=== PATIENT | female | born 1930 | race Caucasian/White ===

== ENCOUNTER 2018-04-17 16:23 | Emergency (ER) | payer MEDICARE ==
[2018-04-17 17:06] VITALS: RESP 18
[2018-04-17] MEDS ORDERED: SODIUM CHLORIDE 0.9% 1,000 ML IV STA (17:46)
[2018-04-17 18:13] LABS: Basophils % (A) 0 %; Eosinophils # (A) 0.1 k/uL (0-0.7); Eosinophils % (A) 2 %; HGB 10.8 gm/dL (11.4-16.0); Lymphocytes # (A) 1.1 k/uL (1.0-4.8); Lymphocytes % (A) 16 %; MCH 32.4 pg (25.0-35.0); MCHC 31.7 g/dL (31.0-37.0); Macrocytosis Slight; Mean Platelet Volume 7.8; Monocytes # (A) 0.4 k/uL (0-1.0); Monocytes % (A) 5 %; Neutrophils # (A) 5.2 k/uL (1.3-7.7); Neutrophils % (A) 75 %; Platelet Count 145 k/uL (150-450); RBC 3.33 m/uL (3.80-5.40)
[2018-04-17 18:22] LABS: Partial Thromboplastin Time 24.1 sec (22.0-30.0); Prothrombin Time 19.9 sec (9.0-12.0)
[2018-04-17 18:27] LABS: Albumin 3.7 g/dL (3.5-5.0); Calcium 9.7 mg/dL (8.4-10.2); Magnesium 1.6 mg/dL (1.6-2.3); Phosphorus 3.8 mg/dL (2.5-4.5); Potassium 4.1 mmol/L (3.5-5.1); Total Bilirubin 0.8 mg/dL (0.2-1.3); Total Protein 6.5 g/dL (6.3-8.2)
[2018-04-17 18:31] LABS: Creatine Kinase 51 U/L (30-135)
[2018-04-17 18:42] LABS: Creatine Kinase MB 0.7 ng/mL (0.0-2.4); Troponin I <0.012 ng/mL (0.000-0.034)
--- NOTE | 2018-04-17 18:45 | CT ---
EXAMINATION TYPE: CT brain suraj devries DATE OF EXAM: 04/17/2018 COMPARISON: None HISTORY: Fall. CT DLP: 1228.[address] of the brain was performed. The ventricles, basal cisterns and sulci overlying the cerebral convexities demonstrate mild enlargem ent. There is no evidence for intracranial hemorrhage or sulcal effacement. There is decreased attenuatio n about the periventricular white matter and deep white matter of both cerebral hemispheres, compatib le with chronic small vessel ischemia. No mass effects are seen. If symptoms persist consider MRI. Osseous calvarium is intact. IMPRESSION: 1. Age related atrophic and chronic small vessel ischemic change without acute intracranial process seen at this time. CT Cervical Spine: Unenhanced CT of the cervical spine was performed with bone and soft tissue window settings submitted . Coronal and sagittal reconstruction is obtained. There is normal alignment and prevertebral soft tissues. No evidence for acute cervical fracture . Scattered degenerative disc disease and spondylosis. Biapical scarring. IMPRESSION: 1. No evidence for acute fracture or subluxation of the cervical spine.
--- NOTE | 2018-04-17 18:46 | XR ---
EXAMINATION TYPE: XR pelvis AP view DATE OF EXAM: 04/17/2018 CLINICAL HISTORY: pain TECHNIQUE: Single view the pelvis is submitted. FINDINGS: No evidence for fracture, dislocation or bony lesion. Joint spaces are well-preserved. S I joints appear symmetric. IMPRESSION: 1. No acute fracture or dislocation seen. ICD 10 NO FRACTURE, INITIAL EVALUATION
--- NOTE | 2018-04-17 18:47 | XR ---
EXAMINATION TYPE: XR chest 2V DATE OF EXAM: 04/17/2018 COMPARISON: NONE HISTORY: Shortness of breath TECHNIQUE: Frontal and lateral views of the chest are obtained. FINDINGS: Scattered senescent parenchymal changes noted. Hyperinflation compatible with COPD. Patchy density left lower lobe may reflect developing infiltrate. Correlate clinically and progress s tudies are recommended. Heart size is stable. Mediastinal structures are stable and grossly unremarkable. No evidence for hilar prominence. Degenerative changes dorsal spine. IMPRESSION: 1. Patchy density left lower lobe may reflect developing infiltrate. Correlate clinically and progres s studies are recommended.
[2018-04-17] MEDS ORDERED: LEVOFLOXACIN 750 MG TAB PO STA (19:01)
--- NOTE | 2018-04-17 19:01 | ED ---
Fall HPI - General Chief Complaint: Fall Stated Complaint: Fall Time Seen by Provider: 04/17/18 16:29 Source: patient Mode of arrival: EMS - History of Present Illness Initial Comments: This is an 87-year-old female the ER for evaluation. Patient resents today for evaluation of fall. Patient has developed fluid and her house earlier today. She hasn't difficulty getting up blood sugar was able to get up and was ambulatory. Patient did hit her head she is on Coumadin, she does have mild hematoma to her posterior scalp, no loss of consciousness. Patient also complaining of mild chest pain currently. No shortness of breath no recent fever cough or congestion. No other recent illness MD Complaint: fall (Chemical) -: hour(s) Fall From: standing When Fall Occurred: 1-3 hours [employer] Fall Witnessed: no Place Fall Occurred: home Loss of Consciousness: none Prolonged Down Time?: no Symptoms Prior to Fall: none Location: head, chest Severity: mild Severity scale (1-10): 2 Quality: burning Context: tripped/slipped Associated Symptoms: denies - Related Data Home Medications Medication Instructions Recorded Confirmed Allopurinol [Zyloprim] 150 mg PO DAILY 04/17/18 04/17/18 Cranberry Fruit Extract [Cranberry] 200 mg PO DAILY 04/17/18 04/17/18 Furosemide [Lasix] 80 mg PO BID 04/17/18 04/17/18 Iron 18 mg PO DAILY 04/17/18 04/17/18 Metoprolol Tartrate [Lopressor] 12.5 mg PO DAILY 04/17/18 04/17/18 Oxybutynin Chloride 5 mg PO DAILY 04/17/18 04/17/18 Potassium Chloride [K-Tab ER] 10 meq PO BID 04/17/18 04/17/18 Simvastatin [Zocor] 20 mg PO DAILY 04/17/18 04/17/18 Warfarin [Coumadin] 1 mg PO [id number] 04/17/18 04/17/18 Warfarin [Coumadin] 2 mg PO LOPEZ 04/17/18 04/17/18 Previous Rx's Medication Instructions Recorded Levofloxacin [Levaquin] 750 mg PO DAILY #7 tab 04/17/18 Allergies Allergy/AdvReac Type Severity Reaction Status Date / Time cephalexin [From Keflex] Allergy Swelling Verified 04/17/18 16:50 sulfamethoxazole Allergy Swelling Verified 04/17/18 16:50 [From ] trimethoprim [From ] Allergy Swelling Verified 04/17/18 16:50 Review of Systems ROS Statement: Those systems with pertinent positive or pertinent negative responses have been documented in the HPI. ROS Other: All systems not noted in ROS Statement are negative. Past Medical History Past Medical History: Cancer, Hyperlipidemia History of Any Multi-Drug Resistant Organisms: None Reported Past Surgical History: Adenoidectomy, Section Past Psychological History: No Psychological Hx Reported Smoking Status: Never smoker Past Alcohol Use History: None Reported Past Drug Use History: None Reported General Exam Limitations: no limitations General appearance: alert, in no apparent distress Head exam: Present: atraumatic, normocephalic, normal inspection Eye exam: Present: normal appearance, PERRL, EOMI. Absent: scleral icterus, conjunctival injection, periorbital swelling ENT exam: Present: normal exam, mucous membranes moist Neck exam: Present: normal inspection. Absent: tenderness, meningismus, lymphadenopathy Respiratory exam: Present: normal lung sounds bilaterally. Absent: respiratory distress, wheezes, rales, rhonchi, stridor Cardiovascular Exam: Present: regular rate, normal rhythm, normal heart sounds. Absent: systolic murmur, diastolic murmur, rubs, gallop, clicks GI/Abdominal exam: Present: soft, normal bowel sounds. Absent: distended, tenderness, guarding, rebound, rigid Extremities exam: Present: normal inspection, full ROM, normal capillary refill. Absent: tenderness, pedal edema, joint swelling, calf tenderness Back exam: Present: normal inspection Neurological exam: Present: alert, oriented X3, CN II-XII intact Psychiatric exam: Present: normal affect, normal mood Skin exam: Present: warm, dry, intact, normal color. Absent: rash Course Vital Signs 04/17/18 04/17/18 04/17/18 16:26 17:00 17:30 Temperature 97.8 F Pulse Rate 69 55 L Respiratory 18 18 Rate Blood Pressure 126/65 126/65 138/70 O2 Sat by Pulse 94 L 96 95 Oximetry - Reevaluation(s) Reevaluation #1: 04/17/18 19:19 Medical record is reviewed and I continue to Reevaluation #2: 04/17/18 19:19 Patient has no complaints of chest pain currently Reevaluation #3: 04/17/18 19:19 Patient informed of positive chest x-ray, questions are answered Reevaluation #4: 04/17/18 19:19 Patient states she has to go [place] night at 7:30, states she would like to be discharged home Medical Decision Making - Medical Decision Making 87 female the ER status post mechanical trip and fall, patient is in the finding of pneumonia, chest pain. EKG troponin negative labwork normal. Patient can be discharged home on antibiotics - Lab Data Result diagrams: 04/17/18 16:52 04/17/18 16:52 Lab Results 04/17/18 04/17/18 04/17/18 Range/Units 16:52 16:52 16:52 WBC 7.0 (3.8-10.6) k/uL RBC 3.33 L (3.80-5.40) m/uL Hgb 10.8 L (11.4-16.0) gm/dL Hct 34.0 (34.0-46.0) % MCV 102.0 H (80.0-100.0) fL MCH 32.4 (25.0-35.0) pg MCHC 31.7 (31.0-37.0) g/dL RDW 15.0 (11.5-15.5) % Plt Count 145 L (150-450) k/uL Neutrophils % 75 % Lymphocytes % 16 % Monocytes % 5 % Eosinophils % 2 % Basophils % 0 % Neutrophils # 5.2 (1.3-7.7) k/uL Lymphocytes # 1.1 (1.0-4.8) k/uL Monocytes # 0.4 (0-1.0) k/uL Eosinophils # 0.1 (0-0.7) k/uL Basophils # 0.0 (0-0.2) k/uL Macrocytosis Slight PT (9.0-12.0) sec INR (<1.2) APTT (22.0-30.0) sec Sodium 140 (137-145) mmol/L Potassium 4.1 (3.5-5.1) mmol/L Chloride 105 (98-107) mmol/L Carbon Dioxide 26 (22-30) mmol/L Anion Gap 9 mmol/L BUN 50 H (7-17) mg/dL Creatinine 1.89 H (0.52-1.04) mg/dL Est GFR (CKD-EPI)AfAm 27 (>60 ml/min/1.73 sqM) Est GFR (CKD-EPI)NonAf 24 (>60 ml/min/1.73 sqM) Glucose 102 H (74-99) mg/dL Plasma Lactic Acid Osorio (0.7-2.0) mmol/L Calcium 9.7 (8.4-10.2) mg/dL Phosphorus 3.8 (2.5-4.5) mg/dL Magnesium 1.6 (1.6-2.3) mg/dL Total Bilirubin 0.8 (0.2-1.3) mg/dL AST 29 (14-36) U/L ALT 30 (9-52) U/L Alkaline Phosphatase 56 (38-126) U/L Total Creatine Kinase 51 (30-135) U/L CK-MB (CK-2) 0.7 (0.0-2.4) ng/mL CK-MB (CK-2) Rel Index 1.4 Troponin I <0.012 (0.000-0.034) ng/mL Total Protein 6.5 (6.3-8.2) g/dL Albumin 3.7 (3.5-5.0) g/dL 04/17/18 04/17/18 Range/Units 16:52 18:18 WBC (3.8-10.6) k/uL RBC (3.80-5.40) m/uL Hgb (11.4-16.0) gm/dL Hct (34.0-46.0) % MCV (80.0-100.0) fL MCH (25.0-35.0) pg MCHC (31.0-37.0) g/dL RDW (11.5-15.5) % Plt Count (150-450) k/uL Neutrophils % % Lymphocytes % % Monocytes % % Eosinophils % % Basophils % % Neutrophils # (1.3-7.7) k/uL Lymphocytes # (1.0-4.8) k/uL Monocytes # (0-1.0) k/uL Eosinophils # (0-0.7) k/uL Basophils # (0-0.2) k/uL Macrocytosis PT 19.9 H (9.0-12.0) sec INR 2.0 H (<1.2) APTT 24.1 (22.0-30.0) sec Sodium (137-145) mmol/L Potassium (3.5-5.1) mmol/L Chloride (98-107) mmol/L Carbon Dioxide (22-30) mmol/L Anion Gap mmol/L BUN (7-17) mg/dL Creatinine (0.52-1.04) mg/dL Est GFR (CKD-EPI)AfAm (>60 ml/min/1.73 sqM) Est GFR (CKD-EPI)NonAf (>60 ml/min/1.73 sqM) Glucose (74-99) mg/dL Plasma Lactic Acid Osorio 1.1 (0.7-2.0) mmol/L Calcium (8.4-10.2) mg/dL Phosphorus (2.5-4.5) mg/dL Magnesium (1.6-2.3) mg/dL Total Bilirubin (0.2-1.3) mg/dL AST (14-36) U/L ALT (9-52) U/L Alkaline Phosphatase (38-126) U/L Total Creatine Kinase (30-135) U/L CK-MB (CK-2) (0.0-2.4) ng/mL CK-MB (CK-2) Rel Index Troponin I (0.000-0.034) ng/mL Total Protein (6.3-8.2) g/dL Albumin (3.5-5.0) g/dL - EKG Data -: EKG Interpreted by Me (EKG shows A. fib rate of 57, QRS 72, QTc 424) - Radiology Data Radiology results: report reviewed (CT brain C-spine pelvis x-ray negative for traumatic injury chest x-ray positive for pneumonia), image reviewed Disposition Clinical Impression: Fall, Community acquired pneumonia Disposition: HOME SELF-CARE Condition: Good Instructions: Fall Prevention for Older Adults (ED), Community Acquired Pneumonia (ED) Prescriptions: Levofloxacin [Levaquin] 750 mg PO DAILY #7 tab Is patient prescribed a controlled substance at d/c from ED?: No Referrals: Amaury Tello MD [Primary Care Provider] - 1-2 days
[2018-04-17 19:22] VITALS: BP 122/69; PULSE 68; TEMP 98.2
== END 2018-04-17 19:22 | disposition home or self-care (01) ==
LOC: EC 16:23
DX: J18.9 Pneumonia, unspecified organism (principal); R07.9 Chest pain, unspecified; E78.5 Hyperlipidemia, unspecified; Z85.9 Personal history of malignant neoplasm, unspecified; Z79.01 Long term (current) use of anticoagulants; Z79.899 Other long term (current) drug therapy; Z88.1 Allergy status to other antibiotic agents; Z88.8 Allergy status to other drugs, medicaments and biological substances
CPT/HCPCS: 36415; 70450; 71046; 72125; 72170; 80053; 82550; 82553; 83605; 83735; 84100; 84484; 85025; 85610; 85730; 93005; 96374; 99284

== ENCOUNTER → 2018-12-05 | Outpatient (CLI) | payer MEDICARE ==
[2018-12-05 11:22] LABS: INR 1.2 (<1.2); Prothrombin Time 12.8 sec (9.0-12.0)
== END | disposition home or self-care (01) ==
LOC: LABWHC1 10:19
PROVIDERS: ATTEND Dentist Oral and Maxillofacial Surgery
DX: D68.9 Coagulation defect, unspecified (principal)
CPT/HCPCS: 36415; 85610